=== PATIENT | female | born 1940 | race Caucasian/White ===

== ENCOUNTER 2024-03-31 18:24 | Inpatient (IN) ==
[2024-03-31 21:45] LABS: ABS Basophils 0.1 10^3/uL (0.0-0.1); ABS Eosinophils 0.1 10^3/uL (0.0-0.5); ABS Lymphocytes 1.3 10^3/uL (1.0-4.8); ABS Monocytes 0.6 10^3/uL (0.0-0.9); ABS Neutrophils 8.8 10^3/uL (1.5-7.6); ABS Nucleated RBC 0.01 10^3/ul; Eosinophil % 0.9 %; Hematocrit 41.6 % (35-45); Hemoglobin 13.9 g/dL (11.5-14.3); Lymphocyte % 11.8 %; Mean Corpuscular Hgb Conc 33.6 g/dL (31-36); Mean Corpuscular Volume 95.2 fL (80-97); Mean Platelet Volume 11.6 fL (7.5-11.2); Nucleated Red Blood Cells % 0.1 %/100WBC (0.0-0.8); Platelet Count 109 10^3/uL (150-450); Red Blood Count 4.36 10^6/uL (3.63-4.92); Red Cell Distribution Width 12.3 % (12-17); White Blood Count 10.9 10^3/uL (3.8-11.8)
[2024-03-31 22:14] LABS: Albumin 4.1 g/dL (3.2-5.2); Albumin/Globulin Ratio 1.8 (1-3); Calcium 9.5 mg/dL (8.6-10.3); Creatinine, Serum 0.66 mg/dL (0.51-0.95); Globulin 2.3 g/dL (2-4); Total Bilirubin 0.6 mg/dL (0.2-1.0); Total Protein 6.4 g/dL (6.4-8.9)
[2024-03-31 22:30] LABS: Potassium 4.4 mmol/L (3.5-5.0)
[2024-03-31] MEDS: Iohexol 300 (CONTRAST) 10 ML SDV IV ONE (22:37)
[2024-04-01 00:19] LABS: High Sensitivity Troponin 1 Hr 7 pg/mL (<15)
[2024-04-01] MEDS ORDERED: Enoxaparin 40 MG/0.4 ML SYR SUBCUT SCH (16:00)
[2024-04-01 16:52] LABS: Folate > 20.00 ng/mL (5.90-24.80)
[2024-04-01 16:57] LABS: Vitamin D Total 25(OH) 87.2 ng/mL (20-50)
[2024-04-01] MEDS ORDERED: Morphine 2 MG/ML SYRINGE IV PRN (17:14)
[2024-04-01] MEDS ORDERED: Senna TAB 8.6 mg TAB PO PRN (17:15)
[2024-04-01 18:22] LABS: Vitamin B12 329 pg/mL (180-914)
[2024-04-01] MEDS: Enoxaparin 40 MG/0.4 ML SYR SUBCUT SCH (19:42)
[2024-04-02 06:09] LABS: Calcium 8.7 mg/dL (8.6-10.3); Creatinine, Serum 0.55 mg/dL (0.51-0.95); Potassium 3.8 mmol/L (3.5-5.0); eGFR CKD-EPI 90.9 (>60)
[2024-04-02 06:10] LABS: Hematocrit 38.3 % (35-45); Hemoglobin 13.1 g/dL (11.5-14.3); Mean Corpuscular Hemoglobin 32.2 pg (27-33); Mean Corpuscular Hgb Conc 34.2 g/dL (31-36); Mean Corpuscular Volume 94.4 fL (80-97); Red Blood Count 4.06 10^6/uL (3.63-4.92); White Blood Count 6.6 10^3/uL (3.8-11.8)
[2024-04-02] MEDS: Potassium Chlor 20 meq TAB.ER PO ONE (07:57)
[2024-04-02] MEDS ORDERED: Sulfur Hexaflouride MICROSPHR 25 MG VIAL ONE (08:12)
[2024-04-02 08:50] LABS: ABS Eosinophils 0.4 10^3/uL (0.0-0.5); ABS Lymphocytes 1.6 10^3/uL (1.0-4.8); ABS Monocytes 0.7 10^3/uL (0.0-0.9); ABS Neutrophils 3.9 10^3/uL (1.5-7.6); Eosinophil % 5.5 %; Giant Platelets Present; Lymphocyte % 24.3 %; Mean Platelet Volume 11.6 fL (7.5-11.2); Platelet Count 93 10^3/uL (150-450)
[2024-04-02] MEDS: Ondansetron 4 mg VIAL 2 MG/ML 2 ml VIAL IV PRN (09:25)
[2024-04-02] MEDS: Senna TAB 8.6 mg TAB PO ONE (16:32)
[2024-04-03] MEDS: Polyethylene Glycol 3350 17 GM PACKET PO SCH (21:33)
[2024-04-04] MEDS ORDERED: Polyethylene Glycol 3350 17 GM PACKET PO SCH (08:00)
[2024-04-04] MEDS: Senna TAB 8.6 mg TAB PO ONE (10:04)
[2024-04-05] MEDS: Senna TAB 8.6 mg TAB PO SCH (08:47)
[2024-04-05 09:52] LABS: ABS Eosinophils 0.1 10^3/uL (0.0-0.5); ABS Lymphocytes 1.5 10^3/uL (1.0-4.8); ABS Monocytes 0.6 10^3/uL (0.0-0.9); ABS Neutrophils 8.6 10^3/uL (1.5-7.6); Eosinophil % 1.1 %; Hematocrit 39.1 % (35-45); Hemoglobin 13.3 g/dL (11.5-14.3); Lymphocyte % 14.2 %; Mean Corpuscular Hemoglobin 32.4 pg (27-33); Mean Corpuscular Hgb Conc 34.1 g/dL (31-36); Mean Corpuscular Volume 95.1 fL (80-97); Mean Platelet Volume 11.2 fL (7.5-11.2); Platelet Count 107 10^3/uL (150-450); Red Blood Count 4.11 10^6/uL (3.63-4.92); Red Cell Distribution Width 12.2 % (12-17); White Blood Count 10.9 10^3/uL (3.8-11.8)
[2024-04-05 10:25] LABS: Albumin 3.6 g/dL (3.2-5.2); Albumin/Globulin Ratio 1.7 (1-3); C Reactive Protein 60.33 mg/L (<8.01); Calcium 8.8 mg/dL (8.6-10.3); Creatinine, Serum 0.65 mg/dL (0.51-0.95); Globulin 2.1 g/dL (2-4); Potassium 3.6 mmol/L (3.5-5.0); Total Bilirubin 0.8 mg/dL (0.2-1.0); Total Protein 5.7 g/dL (6.4-8.9); eGFR CKD-EPI 87.3 (>60)
[2024-04-05] MEDS: Lactated Ringers 1000 ml BAG 1,000 ML IV ONE (10:43)
[2024-04-05 11:20] LABS: Rapid COVID-19 Molecular Undetected (Undetected)
[2024-04-05 12:32] LABS: Urine Appearance Turbid; Urine Bilirubin Negative (Negative); Urine Blood Trace (Negative); Urine Color Yellow; Urine Glucose Negative (Negative); Urine Ketones Negative (Negative); Urine Nitrite Negative (Negative); Urine Protein 1+ (>=30 mg/dL) (Negative); Urine Specific Gravity 1.016 (1.002-1.030); Urine Urobilinogen Negative (Negative); Urine pH 5.5 (5.0-8.0)
[2024-04-05 12:52] LABS: Urine Amorphous Crystals Present /HPF (Absent); Urine Bacteria 1+ /HPF (Absent); Urine Red Blood Cell 2+(6-10/hpf) /HPF (0-Trace); Urine Squamous Epithelial Cell Present /HPF (Absent); Urine Transitional Epithelial Present /HPF (Absent); Urine White Blood Cell 3+(>20/hpf) /HPF (0-Trace)
[2024-04-05] MEDS: Lactulose 30 ml UDC PO ONE (13:26)
[2024-04-05] MEDS: cefTRIAXone 1 gm/50 mL D5W 1 GM/50 ML BAG IV SCH (15:12)
[2024-04-05] MEDS: metroNIDAZOLE IV 500 MG/100ML 500 MG/100 ML BAG IVPB SCH (16:14)
[2024-04-05] MEDS: Potassium EFFERVES 25 meq TAB PO ONE (16:17)
[2024-04-06 05:23] LABS: Hematocrit 35.6 % (35-45); Hemoglobin 12.1 g/dL (11.5-14.3); Mean Corpuscular Hemoglobin 32.1 pg (27-33); Mean Corpuscular Hgb Conc 33.9 g/dL (31-36); Mean Corpuscular Volume 94.6 fL (80-97); Mean Platelet Volume 11.4 fL (7.5-11.2); Platelet Count 103 10^3/uL (150-450); Red Blood Count 3.76 10^6/uL (3.63-4.92); Red Cell Distribution Width 12.2 % (12-17); White Blood Count 9.9 10^3/uL (3.8-11.8)
[2024-04-06 05:39] LABS: Calcium 8.4 mg/dL (8.6-10.3); Creatinine, Serum 0.52 mg/dL (0.51-0.95); Potassium 3.7 mmol/L (3.5-5.0); eGFR CKD-EPI 92.1 (>60)
[2024-04-06 10:09] VITALS: BP 122/49
== END 2024-04-06 13:17 | DRG 563 ==
LOC: EDHOLD 18:24 → ED 18:24 → MEDTELE 04-01 16:10 → SUATTDRO 04-03 16:29
PROVIDERS: ADMIT Internal Medicine; ATTEND Internal Medicine